=== PATIENT | male | born 1965 | race Caucasian/White ===

== ENCOUNTER 2023-03-14 09:32 | Outpatient (REF) | payer OTHER, SELFPAY | END 2023-03-14 09:33 | disposition home or self-care (01) | LOC: HO.SH 09:32 | PROVIDERS: Visit Provider Internal Medicine | DX: Z01.118 Encounter for examination of ears and hearing with other abnormal findings (principal); H90.3 Sensorineural hearing loss, bilateral | CPT/HCPCS: 92557; 92567 ==